=== PATIENT | female | born 2000 | race Two or more races ===

== ENCOUNTER 2021-10-05 15:43 | Emergency (ER) | payer MEDICAID ==
[~2021-10-05] VITALS: Ht 175.3 cm; Wt 104.5 kg
--- NOTE | 2021-10-05 17:06 | PHYS DOC ---
Past Medical History Past Surgical History: Tonsillectomy (MIGUEL A ARREDONDO APRN) General Adult EDM: Chief Complaint: VAGINAL BLEEDING HPI: HPI: Patient is a 21 year old female who presents with 2 days of vaginal bleeding with nausea and some cramps. She states is like a normal period. Her last menstrual period was September 08 and it was a normal period for her. She states that she has not had any abnormal vaginal discharge. She states she has no concerns for STDs. She says she has a low mid abdominal cramps. She has not taken a test. She does not have a it security administrator or primary care physician. Only past medical history is a tonsillectomy. She denies urinary symptoms, vomiting, diarrhea, fever, back pain, chest pain, shortness of air, cough, headache, dizziness, syncope. This time she rates her pain 4 out of 10. (MIGUEL A ARREDONDO [employer]) Review of Systems: Review of Systems: Constitutional: Denies fever or chills. [] Eyes: Denies change in visual acuity. [] HENT: Denies nasal congestion or sore throat. [] Respiratory: Denies cough or shortness of breath. [] Cardiovascular: Denies chest pain or edema. [] GI: + abdominal pain, +nausea, denies vomiting, bloody stools or diarrhea. [] : Denies dysuria. + Vaginal bleeding [] Musculoskeletal: Denies back pain or joint pain. [] Integument: Denies rash. [] Neurologic: Denies headache, focal weakness or sensory changes. [] Endocrine: Denies polyuria or polydipsia. [] Lymphatic: Denies swollen glands. [] Psychiatric: Denies depression or anxiety. [] (MIGUEL A ARREDONDO [employer]) Heart Score: C/O Chest Pain: No (MIGUEL A ARREDONDO [employer]) Allergies: Allergies: Allergies Coded Allergies Type Severity Reaction Last Updated Verified amoxicillin Allergy Severe Rash 10/05/21 Yes clavulanic acid Allergy Severe Rash 10/05/21 Yes (MIGUEL A ARREDONDO [employer]) Physical Exam: PE: Constitutional: Well developed, well nourished, no acute distress, non-toxic appearance. [] HENT: Normocephalic, atraumatic, bilateral external ears normal, oropharynx moist, no oral exudates, nose normal. [] Eyes: PERRLA, EOMI, conjunctiva normal, no discharge. [] Neck: Normal range of motion, no tenderness, supple, no stridor. [] Cardiovascular:Heart rate regular rhythm, no murmur [] Lungs & Thorax: Bilateral breath sounds clear to auscultation [] Abdomen: Bowel sounds normal, soft, low mid pressure tenderness, no masses, no pulsatile masses. [] Skin: Warm, dry, no erythema, no rash. [] Back: No tenderness, no CVA tenderness. [] Extremities: No tenderness, no cyanosis, no clubbing, ROM intact, no edema. [] Neurologic: Alert and oriented X 3, normal motor function, normal sensory function, no focal deficits noted. [] Psychologic: Affect normal, judgement normal, mood normal. [] (MIGUEL A ARREDONDO APRN) Current Patient Data: Labs: Laboratory Tests Test 10/05/21 16:39 POC Urine HCG, Qualitative Hcg negative (Negative) Vital Signs: Vital Signs Date Time Temp Pulse Resp B/P (MAP) Pulse Ox O2 Delivery O2 Flow Rate FiO2 10/05/21 16:21 97.9 73 17 117/68 (84) 99 Room Air 97.9 (MIGUEL A ARREDONDO APRN) EKG: EKG: [] (MIGUEL A ARREDONDO APRN) Radiology/Procedures: Radiology/Procedures: [] Impression: [facility] [address] [place] [address] IMAGING REPORT Signed PATIENT: ANNEMARIE AZEVEDO ACCOUNT: [id number] : 2000 LOCATION: ER AGE: 21 SEX: F EXAM STATUS: REG ER ORD. PHYSICIAN: MIGUEL A ARREDONDO APRN REASON: pelvic pain PROCEDURE: PELVIS W/TV EXAM: ULTRASOUND PELVIS INDICATION: Reason: pelvic pain / Spl. Instructions: / History: . Last menstrual period was 09/08/2021. COMPARISON: None available. TECHNIQUE: Transvaginal sonography was performed. FINDINGS: Uterus measures 5.6 x 4.1 x 3.2 cm. Endometrium is 2 mm in thickness. Right ovary measures 5.2 x 2.8 x 2.0 cm. Left ovary measures 3.1 x 3.3 x 2.2 cm. Vascular flow identified in the ovaries bilaterally. No free fluid identified and pelvis. IMPRESSION: Normal sonographic appearance of the uterus and ovaries. No evidence for torsion. Electronically signed by: James Gutiérrez MD (10/05/2021 7:27 PM) [facility] DICTATED and SIGNED BY: JAMES GUTIÉRREZ MD DATE: 10/05/21 [id number] (MIGUEL A ARREDONDO APRN) Course & Med Decision Making: Course & Med Decision Making Pertinent Labs and Imaging studies reviewed. (See chart for details) See HPI. Alert and oriented x4. Ambulatory steady gait. Speaks in full clear sentences. Skin pink warm and dry. Abdomen is soft and has a pressure type of pain with palpation to the low mid abdomen. Afebrile. No CVA tenderness. Pelvic Exam: Cheesemaking Laborer present Abdomen: Nontender External Genitalia: Normal Skin Speculum: Normal vaginal mucosa, bloody cervical discharge Bimanual: No adnexal masses or tenderness, No CMT When reviewing all the findings. Patient is likely on her menstrual cycle. Negative . Blood work unremarkable. [] (MIGUEL A ARREDONDO APRN) Dragon Disclaimer: Dragon Disclaimer: This electronic medical record was generated, in whole or in part, using a voice recognition dictation system. (MIGUEL A ARREDONDO APRN) Departure Departure Impression: Primary Impression: Menstrual cramp Additional Impressions: Vaginal bleeding Bacterial vaginosis Disposition: HOME / SELF CARE / HOMELESS Condition: STABLE Referrals: NO PCP (PCP) AR LILLY MD Patient Instructions: Bacterial Vaginosis, Medical Screening Exam Additional Instructions: Follow-up with a it security administrator if needed. Drink plenty of fluids. Take medication as prescribed and with food. Do not drink alcohol on top of this medication as it will make you vomit. If you start running a fever or have severe vaginal bleeding and going to more than 1 pad an hour return to the emergency room. Take Tylenol or ibuprofen for pain. Scripts Metronidazole (METRONIDAZOLE) 500 Mg Tablet 1 TAB PO BID for 7 Days, #14 TAB 0 Refills Prov: MIGUEL A ARREDONDO APRN 10/05/21 Attending Signature Attending Signature I have reviewed the PA/BLACK TOP RAKER's note and plan of care. I was available for consultation as needed during the patient's visit in the emergency department. I agree with the clinical impression, plan, and disposition. (AR ECKERT DO) MIGUEL A ARREDONDO APRN Oct 05, 2021 17:06 AR ECKERT DO Oct 06, 2021 07:42
[2021-10-05 17:14] LABS: BILIRUBIN,URINE NEGATIVE (NEG); CLARITY,URINE CLEAR; COLOR,URINE AMBER; NITRITE,URINE NEGATIVE (NEG); PH,URINE 5.5 (<5.0-8.0); PROTEIN,URINE 30 mg/dL (NEG-TRACE)
[2021-10-05 17:27] LABS: BASO % 1 % (0-3); EOS # 0.1 x10^3/uL (0.0-0.7); EOS % 1 % (0-3); HEMOGLOBIN 12.7 g/dL (12.0-15.5); LYMPH # 1.4 x10^3/uL (1.0-4.8); LYMPH % 25 % (24-48); MEAN CORPUSCULAR HEMOGLOBIN 30 pg (25-35); MEAN CORPUSCULAR HGB CONC 33 g/dL (31-37); MEAN CORPUSCULAR VOLUME 90 fL (79-100); MONO # 0.6 x10^3/uL (0.0-1.1); MONO % 11 % (0-9); NEUT # 3.6 x10^3/uL (1.8-7.7); NEUT % 63 % (31-73); PLATELET COUNT 280 x10^3/uL (140-400); RED BLOOD COUNT 4.23 x10^6/uL (3.50-5.40); RED CELL DISTRIBUTION WIDTH 14.7 % (11.5-14.5); WHITE BLOOD COUNT 5.8 x10^3/uL (4.0-11.0)
[2021-10-05 17:31] LABS: RBC,URINE >40 /HPF (0-2)
[2021-10-05 17:33] LABS: BACTERIA,URINE FEW /HPF (0-FEW); WBC,URINE OCC /HPF (0-4)
[2021-10-05 17:34] LABS: CALCIUM 8.2 mg/dL (8.5-10.1); CREATININE 0.7 mg/dL (0.6-1.0); GFR 103.7; POTASSIUM 3.9 mmol/L (3.5-5.1)
[2021-10-05 17:40] LABS: ALBUMIN 3.4 g/dL (3.4-5.0); ALBUMIN/GLOBULIN RATIO 0.9 (1.0-1.7); TOTAL BILIRUBIN 0.3 mg/dL (0.2-1.0); TOTAL PROTEIN 7.4 g/dL (6.4-8.2)
[2021-10-05 18:57] VITALS: BP 118/58
--- NOTE | 2021-10-05 19:29 | RAD ---
EXAM: ULTRASOUND PELVIS INDICATION: Reason: pelvic pain / Spl. Instructions: / History: . Last menstrual period was 021. COMPARISON: None available. TECHNIQUE: Transvaginal sonography was performed. FINDINGS: Uterus measures 5.6 x 4.1 x 3.2 cm. Endometrium is 2 mm in thickness. Right ovary measures 5.2 x 2.8 x 2.0 cm. Left ovary measures 3.1 x 3.3 x 2.2 cm. Vascular flow identified in the ovaries bilaterally. No free fluid identified and pelvis. IMPRESSION: Normal sonographic appearance of the uterus and ovaries. No evidence for torsion. Electronically signed by: James Blunt MD (10/05/2021 7:27 PM) [facility]
[2021-10-05] MEDS ORDERED: METR-34 PO (19:43)
[2021-10-06 20:24] LABS: GC PROBE Negative (Negative)
== END 2021-10-05 20:00 | disposition home or self-care (01) ==
LOC: ER 15:43
DX: N93.9 Abnormal uterine and vaginal bleeding, unspecified (principal); R11.0 Nausea; N76.0 Acute vaginitis; B96.89 Other specified bacterial agents as the cause of diseases classified elsewhere; N94.6 Dysmenorrhea, unspecified; Z88.1 Allergy status to other antibiotic agents; Z88.8 Allergy status to other drugs, medicaments and biological substances
CPT/HCPCS: 76830; 76856; 80053; 81001; 81025; 84702; 85025; 87491; 87591; 99284; Q0111